=== PATIENT | male | born 1965 | race African-American/Black ===

== ENCOUNTER 2020-03-20 00:48 | Emergency (ER) | payer OTHER ==
[~2020-03-20] VITALS: Ht 177.8 cm; Wt 83.9 kg
[2020-03-20 01:00] VITALS: BP 142/82
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
--- NOTE | 2020-03-20 01:25 | NUR ---
ED Nurse Note: Patient taken to CT accompanied by [employer].
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
[2020-03-20] MEDS ORDERED: IBUPROFEN600 M1 ORAL (02:46)
[2020-03-20 02:48] VITALS: BP 133/79
--- NOTE | 2020-03-20 02:48 | NUR ---
ER DISCHARGE NOTE: Patient is cleared to be discharged per ERMD, pt is aox4, on room air, with stable vital signs. [employer] officer nanette #[id number] was given dc and prescription instructions, pt and [employer] officer was able to verbalize understanding. pt is able to ambulate with steady gait. pt took all belongings. pt stable upon discharge.
== END 2020-03-20 02:50 ==
LOC: EDBD 00:48 → EMR 01:05
DX: S09.90XA Unspecified injury of head, initial encounter (principal); S16.1XXA Strain of muscle, fascia and tendon at neck level, initial encounter; S20.219A Contusion of unspecified front wall of thorax, initial encounter; S80.02XA Contusion of left knee, initial encounter; E11.9 Type 2 diabetes mellitus without complications; I10 Essential (primary) hypertension; Z88.8 Allergy status to other drugs, medicaments and biological substances; V43.52XA Car driver injured in collision with other type car in traffic accident, initial encounter; Y92.410 Unspecified street and highway as the place of occurrence of the external cause; R07.9 Chest pain, unspecified; M54.2 Cervicalgia; S00.03XA Contusion of scalp, initial encounter
CPT/HCPCS: 70450; 71045; 72125; 99284